=== PATIENT | female | born 2005 | race Caucasian/White ===

== ENCOUNTER 2023-08-27 00:11 | Emergency (ER) | payer BC ==
[2023-08-27 00:22] VITALS: RESP 20
--- NOTE | 2023-08-27 00:51 | ED ---
Eye Problem HPI - General Chief complaint: Eye Problems Stated complaint: Rt eye swelling and pain Time Seen by Provider: 08/27/23 00:24 Source: patient, RN notes reviewed Mode of arrival: ambulatory Limitations: no limitations - History of Present Illness Initial comments: 17-year-old female presented to the ED with a chief complaint of eye problem. Patient just recently found out she was . Has upcoming follow-up with [facility]. Denies vaginal bleeding, abdominal pain, vaginal discharge. Secondary to recent , notes that she has been having nausea and has problems with queasiness. States that she saw her boyfriend unwrapping a burger which made her nauseous. States that after she vomited she started to feel pain of her right and noticed that she popped a blood vessel which prompted presentation to the ED for further evaluation. Denies vision loss. No fever or chills. No other complaints at this time. - Related Data Allergies Allergy/AdvReac Type Severity Reaction Status Date / Time No Known Allergies Allergy Verified 08/27/23 00:22 Review of Systems ROS Statement: Those systems with pertinent positive or pertinent negative responses have been documented in the HPI. ROS Other: All systems not noted in ROS Statement are negative. Past Medical History Past Medical History: No Reported History History of Any Multi-Drug Resistant Organisms: None Reported Past Surgical History: No Surgical Hx Reported Past Psychological History: No Psychological Hx Reported Smoking Status: Vaper Past Alcohol Use History: None Reported Past Drug Use History: Marijuana General Exam Limitations: no limitations General appearance: alert, in no apparent distress Eye exam: Present: PERRL, EOMI, other (Small amount of conjunctival injection) Neck exam: Present: normal inspection Respiratory exam: Present: normal lung sounds bilaterally Cardiovascular Exam: Present: regular rate GI/Abdominal exam: Present: soft, normal bowel sounds. Absent: distended, tenderness, guarding, rebound, rigid Extremities exam: Present: normal inspection Back exam: Present: normal inspection Neurological exam: Present: alert, oriented X3 Skin exam: Present: warm, dry Course Vital Signs 08/27/23 00:19 Temperature 98.3 F Pulse Rate 102 H Respiratory 20 Rate Blood Pressure 137/90 O2 Sat by Pulse 99 Oximetry Medical Decision Making - Medical Decision Making Was pt. sent in by a medical professional or institution (, PA, PUBLICATION DISTRIBUTOR, urgent care, hospital, or retirement...) When possible be specific @ -No Did you speak to anyone other than the patient for history (EMS, parent, family, police, friend...)? What history was obtained from this source @ -No Did you review nursing and triage notes (agree or disagree)? Why? @ -I reviewed and agree with nursing and triage notes Were old charts reviewed (outside hosp., previous admission, EMS record, old EKG, old radiological studies, urgent care reports/EKG's, retirement records)? Report findings @ -No old charts were reviewed Differential Diagnosis (chest pain, altered mental status, abdominal pain women, abdominal pain men, vaginal bleeding, weakness, fever, dyspnea, syncope, headache, dizziness, GI bleed, back pain, seizure, CVA, palpatations, mental health, musculoskeletal)? @ -Retinal detachment, orbital cellulitis, periorbital cellulitis. This not meant to be an inclusive list. EKG interpreted by me (3pts min.). @ -None X-rays interpreted by me (1pt min.). @ -None done CT interpreted by me (1pt min.). @ -None done U/S interpreted by me (1pt. min.). @ -None done What testing was considered but not performed or refused? (CT, X-rays, U/S, labs)? Why? @ -None What meds were considered but not given or refused? Why? @ -None Did you discuss the management of the patient with other professionals (professionals i.e. , PA, PUBLICATION DISTRIBUTOR, lab, RT, psych nurse, mental health social worker, bowl attendant, teacher, licensed loan officer assistant, supportive employment case manager)? Give summary @ -No Was smoking cessation discussed for >3mins.? @ -No Was critical care preformed (if so, how long)? @ -No Were there social determinants of health that impacted care today? How? (Homelessness, low income, unemployed, alcoholism, drug addiction, transportation, low edu. Level, literacy, decrease access to med. care, halfway, rehab)? @ -No Was there de-escalation of care discussed even if they declined (Discuss DNR or withdrawal of care, Hospice)? DNR status @ -No What co-morbidities impacted this encounter? (DM, HTN, Smoking, COPD, CAD, Cancer, CVA, ARF, Chemo, Hep., AIDS, mental health diagnosis, sleep apnea, morbid obesity)? @ -None Was patient admitted / discharged? Hospital course, mention meds given and route, prescriptions, significant lab abnormalities, going to OR and other pertinent info. @ -Discharge 17-year-old female who is presenting to the ED with complaints of subconjunctival hemorrhage. Patient reports that she vomited earlier after seeing her boyfriend unwrapped a burger and states that she thinks she popped a blood vessel in her eye. On examination consistent with small subconjunctival hemorrhage. No vision losses. PERRLA EOMI. Exam findings consistent with subconjunctival hemorrhage. Patient reassured. Discharged home in stable condition with instructions to follow-up with her PCP. Discussed return precautions patient who verbalized agreement. Undiagnosed new problem with uncertain prognosis? @ -No Drug Therapy requiring intensive monitoring for toxicity (Heparin, Nitro, Insulin, Cardizem)? @ -No Were any procedures done? @ -No Diagnosis/symptom? @ -Subconjunctival hemorrhage Acute, or Chronic, or Acute on Chronic? @ -Acute Uncomplicated (without systemic symptoms) or Complicated (systemic symptoms)? @ -Uncomplicated Side effects of treatment? @ -No Exacerbation, Progression, or Severe Exacerbation? @ -No Poses a threat to life or bodily function? How? (Chest pain, USA, NV, pneumonia, PE, COPD, DKA, ARF, appy, cholecystitis, CVA, Diverticulitis, Homicidal, Suicidal, threat to staff... and all critical care pts) @ -No Disposition Clinical Impression: Subconjunctival bleed Disposition: HOME SELF-CARE Condition: Good Instructions (If sedation given, give patient instructions): Subconjunctival Hemorrhage (ED) Additional Instructions: Please return to the Emergency Department if symptoms worsen or any other concerns. Please follow-up with your primary care provider. Is patient prescribed a controlled substance at d/c from ED?: No Referrals: Italo Garcia MD [Primary Care Provider] - 1-2 days Time of Disposition: 00:55
[2023-08-27 01:45] VITALS: BP 133/87; PULSE 90; TEMP 98.2
== END 2023-08-27 01:05 | disposition home or self-care (01) ==
LOC: EC 00:11
DX: H11.30 Conjunctival hemorrhage, unspecified eye (principal); F17.290 Nicotine dependence, other tobacco product, uncomplicated
CPT/HCPCS: 99283

== ENCOUNTER 2023-09-10 12:44 | Emergency (ER) | payer BC ==
[2023-09-10 13:01] VITALS: RESP 16
--- NOTE | 2023-09-10 13:27 | ED ---
Female Urogenital HPI - General Chief complaint: Vaginal Bleeding Stated complaint: Vaginal bleeding-7 weeks preg Time Seen by Provider: 09/10/23 13:04 Source: patient, RN notes reviewed Mode of arrival: ambulatory Limitations: no limitations - History of Present Illness Initial comments: This is a 17-year-old female who presents to the emergency department for vaginal bleeding in . Patient is approximately 6 and half weeks and . States that she has had vaginal bleeding for the last 5 days that seems to be getting worse. The pain she states almost feels near where her cervix would be. She works at [employer] and had her hCG rechecked and was told that it had doubled. Most recent hCG on 09/04 was 12,000. Blood type is O- and she also received RhoGAM on 09/04. She had an ultrasound when she was about 5 weeks demonstrating a gestational sac, however it was too early to see a heartbeat. Currently follows with [facility] in [place], [place]. Complaint: vaginal bleeding Last Menstrual Period: 07/05/23 - Related Data Allergies Allergy/AdvReac Type Severity Reaction Status Date / Time No Known Allergies Allergy Verified 08/27/23 00:22 Review of Systems ROS Statement: Those systems with pertinent positive or pertinent negative responses have been documented in the HPI. ROS Other: All systems not noted in ROS Statement are negative. Past Medical History Past Medical History: GERD/Reflux Additional Past Medical History / Comment(s): ibs History of Any Multi-Drug Resistant Organisms: None Reported Past Surgical History: No Surgical Hx Reported Past Psychological History: No Psychological Hx Reported Smoking Status: Vaper Past Alcohol Use History: None Reported Past Drug Use History: Marijuana General Exam Limitations: no limitations General appearance: alert, in no apparent distress Head exam: Present: atraumatic, normocephalic, normal inspection Respiratory exam: Present: normal lung sounds bilaterally. Absent: respiratory distress, wheezes, rales, rhonchi, stridor Cardiovascular Exam: Present: regular rate, normal rhythm, normal heart sounds. Absent: systolic murmur, diastolic murmur, rubs, gallop, clicks Neurological exam: Present: alert, oriented X3, CN II-XII intact Psychiatric exam: Present: normal affect, normal mood Skin exam: Present: warm, dry, intact, normal color. Absent: rash Course Vital Signs 09/10/23 09/10/23 12:58 15:40 Temperature 98.2 F 97.9 F Pulse Rate 60 62 Respiratory 16 16 Rate Blood Pressure 117/62 119/78 O2 Sat by Pulse 98 100 Oximetry Medical Decision Making - Medical Decision Making This is a 17 year old female who presents to the emergency department for vaginal bleeding in . Was pt. sent in by a medical professional or institution? @ -No Did you speak to anyone other than the patient for history? @ -No Did you review nursing and triage notes? @ -Yes, and I agree, it is accurate with regards to the patient's symptoms. Were old charts reviewed? @ -No Differential Diagnosis? @ -Differential Vaginal Bleeding: Spontaneous , threatened , molar , ectopic , incompetent cervix, placenta previa, uterine rupture, dysfunctional uterine bleeding, hemorrhage, uterine fibroids, malignancy, coagulopathy, PID, cervicitis, adenomyosis, vaginal trauma, this is not meant to be an all- inclusive list. EKG interpreted by me (3pts min.)? @ -Not obtained X-rays interpreted by me (1pt min.)? @ -Not obtained CT interpreted by me (1pt min.)? @ -Not obtained U/S interpreted by me (1pt. min.)? @ -Obstetrics ultrasound obtained. My interpretation identifies an intrauterine gestational sac. What testing was considered but not performed? (CT, X-rays, U/S, labs)? Why? @ -None What meds were considered but not given? Why? @ -None Did you discuss the management of the patient with other professionals? @ -No Did you reconcile home meds? @ -No Was smoking cessation discussed for >3mins.? @ -No Was critical care preformed (if so, how long)? @ -No Were there social determinants of health that impacted care today? How? (Homelessness, low income, unemployed, alcoholism, drug addiction, transportation, low edu. Level, literacy, decrease access to med. care, half-way, rehab)? @ -No Was there de-escalation of care discussed even if they declined? (Discuss DNR or withdrawal of care, Hospice)? @ -No What co-morbidities impacted this encounter? (DM, HTN, Smoking, COPD, CAD, Cancer, CVA, Hep., AIDS, mental health diagnosis, sleep apnea, morbid obesity)? @ - Was patient admitted / discharged? @ -Discharged. Lab work demonstrates a beta-hCG of 48,999, this is about what would be expected given that her hCG was around 12,000 on 09/04. Urinalysis negative for signs of infection. Patient is Rh-, but received RhoGAM 5 days ago and a repeat dose is not indicated at this time. Obstetrics ultrasound demonstrates an intrauterine gestational sac with yolk sac. No pole or heart tones identified at this time likely due to early gestational paged. Findings reviewed with the patient. She was given a lab order to have beta-hCG repeated in 48 hours. Otherwise advised follow-up with her [facility]. Undiagnosed new problem with uncertain prognosis? @ -None Drug Therapy requiring intensive monitoring for toxicity (Heparin, Nitro, Insulin, Cardizem)? @ -None Were any procedures done? @ -None Diagnosis/symptom? @ -Vaginal bleeding in Acute, or Chronic, or Acute on Chronic? @ -Acute Uncomplicated (without systemic symptoms) or Complicated (systemic symptoms)? @ -Uncomplicated Side effects of treatment? @ -None Exacerbation, Progression, or Severe Exacerbation] @ -Not applicable Poses a threat to life or bodily function? @ -Unlikely Return precautions reviewed in depth, the patient is instructed to return to the emergency department with any new, worsening, or concerning symptoms. Patient verbalized understanding. This case was discussed in detail with the attending ED physician, Dr. Marte. Presentation, findings, and treatment plan discussed in detail as well. - Lab Data Result diagrams: 09/10/23 13:30 09/10/23 13:30 Lab Results 09/10/23 09/10/23 09/10/23 Range/Units 13:30 13:30 13:30 WBC 6.9 (4.0-11.0) k/uL RBC 4.38 (3.80-5.40) m/uL Hgb 13.0 (11.4-16.0) gm/dL Hct 40.4 (34.0-46.0) % MCV 92.2 (80.0-100.0) fL MCH 29.6 (25.0-35.0) pg MCHC 32.1 (31.0-37.0) g/dL RDW 12.6 (11.5-15.5) % Plt Count 250 (150-450) k/uL MPV 8.6 Neutrophils % 61 % Lymphocytes % 27 % Monocytes % 7 % Eosinophils % 1 % Basophils % 0 % Neutrophils # 4.2 (1.3-7.7) k/uL Lymphocytes # 1.9 (1.0-4.8) k/uL Monocytes # 0.5 (0-1.0) k/uL Eosinophils # 0.1 (0-0.7) k/uL Basophils # 0.0 (0-0.2) k/uL Sodium 138 (137-145) mmol/L Potassium 3.8 (3.5-5.1) mmol/L Chloride 106 (98-107) mmol/L Carbon Dioxide 22 (22-30) mmol/L Anion Gap 10 mmol/L BUN 9 (7-17) mg/dL Creatinine 0.46 L (0.52-1.04) mg/dL Est GFR (CKD-EPI)AfAm >90 (>60 ml/min/1.73 sqM) Est GFR (CKD-EPI)NonAf >90 (>60 ml/min/1.73 sqM) Glucose 84 (74-99) mg/dL Calcium 9.6 (8.4-10.2) mg/dL Total Bilirubin 0.8 (0.2-1.3) mg/dL AST 22 (14-36) U/L ALT 14 (4-34) U/L Alkaline Phosphatase 40 (38-126) U/L Total Protein 6.8 (6.3-8.2) g/dL Albumin 4.2 (3.5-5.0) g/dL HCG, Quant 18772.4 mIU/mL Urine Color Urine Appearance (Clear) Urine pH (5.0-8.0) Ur Specific Thornton (1.001-1.035) Urine Protein (Negative) Urine Glucose (UA) (Negative) Urine Ketones (Negative) Urine Blood (Negative) Urine Nitrite (Negative) Urine Bilirubin (Negative) Urine Urobilinogen (<2.0) mg/dL Ur Leukocyte Esterase (Negative) Blood Type O Negative Blood Type Recheck No Previous Record Bld Type Recheck Status [facility] 09/10/23 Range/Units 14:40 WBC (4.0-11.0) k/uL RBC (3.80-5.40) m/uL Hgb (11.4-16.0) gm/dL Hct (34.0-46.0) % MCV (80.0-100.0) fL MCH (25.0-35.0) pg MCHC (31.0-37.0) g/dL RDW (11.5-15.5) % Plt Count (150-450) k/uL MPV Neutrophils % % Lymphocytes % % Monocytes % % Eosinophils % % Basophils % % Neutrophils # (1.3-7.7) k/uL Lymphocytes # (1.0-4.8) k/uL Monocytes # (0-1.0) k/uL Eosinophils # (0-0.7) k/uL Basophils # (0-0.2) k/uL Sodium (137-145) mmol/L Potassium (3.5-5.1) mmol/L Chloride (98-107) mmol/L Carbon Dioxide (22-30) mmol/L Anion Gap mmol/L BUN (7-17) mg/dL Creatinine (0.52-1.04) mg/dL Est GFR (CKD-EPI)AfAm (>60 ml/min/1.73 sqM) Est GFR (CKD-EPI)NonAf (>60 ml/min/1.73 sqM) Glucose (74-99) mg/dL Calcium (8.4-10.2) mg/dL Total Bilirubin (0.2-1.3) mg/dL AST (14-36) U/L ALT (4-34) U/L Alkaline Phosphatase (38-126) U/L Total Protein (6.3-8.2) g/dL Albumin (3.5-5.0) g/dL HCG, Quant mIU/mL Urine Color Light Yellow Urine Appearance Clear (Clear) Urine pH 7.5 (5.0-8.0) Ur Specific Thornton 1.018 (1.001-1.035) Urine Protein Negative (Negative) Urine Glucose (UA) Negative (Negative) Urine Ketones Negative (Negative) Urine Blood Negative (Negative) Urine Nitrite Negative (Negative) Urine Bilirubin Negative (Negative) Urine Urobilinogen <2.0 (<2.0) mg/dL Ur Leukocyte Esterase Negative (Negative) Blood Type Blood Type Recheck Bld Type Recheck Status - Radiology Data Radiology results: report reviewed, image reviewed Disposition Clinical Impression: Vaginal bleeding during Disposition: HOME SELF-CARE Additional Instructions: Return to the emergency department with any new, worsening, or concerning symptoms. Take the lab slip to have your hCG count repeated in 48 hours. Follow-up with your [facility]. Is patient prescribed a controlled substance at d/c from ED?: No Referrals: Italo Garcia MD [Primary Care Provider] - 1-2 days Time of Disposition: 15:20
[2023-09-10 14:00] LABS: Basophils % (A) 0 %; Eosinophils # (A) 0.1 k/uL (0-0.7); Eosinophils % (A) 1 %; HCT 40.4 % (34.0-46.0); Lymphocytes # (A) 1.9 k/uL (1.0-4.8); Lymphocytes % (A) 27 %; MCH 29.6 pg (25.0-35.0); MCHC 32.1 g/dL (31.0-37.0); MCV 92.2 fL (80.0-100.0); Mean Platelet Volume 8.6; Monocytes # (A) 0.5 k/uL (0-1.0); Monocytes % (A) 7 %; Neutrophils # (A) 4.2 k/uL (1.3-7.7); Neutrophils % (A) 61 %; Platelet Count 250 k/uL (150-450); RBC 4.38 m/uL (3.80-5.40); RDW 12.6 % (11.5-15.5); WBC 6.9 k/uL (4.0-11.0)
[2023-09-10 14:04] LABS: ALT 14 U/L (4-34); AST 22 U/L (14-36); African American GFR (CKD) >90 (>60 ml/min/1.73 sqM); Albumin 4.2 g/dL (3.5-5.0); Alkaline Phosphatase 40 U/L (38-126); Anion Gap 10 mmol/L; Blood Urea Nitrogen 9 mg/dL (7-17); Calcium 9.6 mg/dL (8.4-10.2); Carbon Dioxide 22 mmol/L (22-30); Chloride 106 mmol/L (98-107); Glucose 84 mg/dL (74-99); Non-African American GFR(CKD) >90 (>60 ml/min/1.73 sqM); Potassium 3.8 mmol/L (3.5-5.1); Sodium 138 mmol/L (137-145); Total Bilirubin 0.8 mg/dL (0.2-1.3); Total Protein 6.8 g/dL (6.3-8.2)
[2023-09-10 14:48] LABS: HCG,Quantitative Serum 48999.4 mIU/mL
[2023-09-10 14:56] LABS: Appearance,Urine Clear (Clear); Bilirubin,Urine Negative (Negative); Blood,Urine Negative (Negative); Color,Urine Light Yellow; Glucose,Urine (UA) Negative (Negative); Ketones,Urine Negative (Negative); Leukocyte Esterase,Urine Negative (Negative); Nitrite,Urine Negative (Negative); PH, Urine 7.5 (5.0-8.0); Protein,Urine Negative (Negative); Specific Gravity,Urine 1.018 (1.001-1.035); Urobilinogen,Urine <2.0 mg/dL (<2.0)
--- NOTE | 2023-09-10 15:06 | US ---
EXAMINATION TYPE: Transabdominal DATE OF EXAM: 09/10/2023 2:39 PM COMPARISON: NONE CLINICAL INDICATION: Female, 17 years old with history of Vaginal bleeding in ; vaginal blee ding for 1 week. Patient states 5-7 weeks gestation EXAM PERFORMED: Transvaginal (TV) and Transabdominal (TA) EXAM MEASUREMENTS: GESTATIONAL AGE / DATING Physician Established: Not yet established Dates by LMP: (9 weeks/4 days) EDC: 04/10/24 Dates by First Scan: No previous this is first scan Dates by Current Scan for: (6 weeks/5 days) - MSD MATERNAL ANATOMY Uterus: 8.3 x 5.6 x 6.2cm Right Ovary: 2.9 x 1.7 x 1.5cm Left Ovary: 4.2 x 2.8 x 1.9cm Post CDS / Adnexa: wnl Presence of free fluid: no Presence of corpus luteal cyst: yes, complex area left ovary = 2.6 x 1.8 x 2.2cm GESTATION / SURVEY MSD: 1.8cm (6 weeks/5 days) Yolk Sac (normal less than 6mm): 0.3cm IUP: no evidence of pole at this time ?? too early Date of LMP: 07/05/23 Beta HcG (if available): Not available at this time IMPRESSION: Intrauterine gestational sac with yolk sac identified corresponding to ultrasound age of 6 weeks 5 da ys. No pole or heart tones are identified at this time likely due to early gestational ag e. Recommend follow-up with pelvic ultrasound and serial beta hCG to ensure further development of th e fetus.
[2023-09-10 15:42] VITALS: BP 119/78; PULSE 62; TEMP 97.9
== END 2023-09-10 15:42 | disposition home or self-care (01) ==
LOC: EC 12:44
DX: O20.9 Hemorrhage in early pregnancy, unspecified (principal); N93.9 Abnormal uterine and vaginal bleeding, unspecified; O99.321 Drug use complicating pregnancy, first trimester; F17.290 Nicotine dependence, other tobacco product, uncomplicated; Z3A.01 Less than 8 weeks gestation of pregnancy
CPT/HCPCS: 36415; 76801; 76817; 80053; 81003; 84702; 85025; 86900; 86901; 99284

== ENCOUNTER 2024-05-06 13:15 | Inpatient (IN) | payer OTHER ==
[2024-05-15] MEDS ORDERED: CARBOPROST TROMETHAMINE 250 MCG/ML 1 ML AMP IM PRN (06:20)
[2024-05-15] MEDS ORDERED: LIDOCAINE 0.5% (PF) 5 MG/ML (50 ML SDV) SQ PRN (06:20)
[2024-05-15] MEDS ORDERED: miSOPROStoL 200 MCG TAB PO PRN (06:20)
[2024-05-15] MEDS ORDERED: METHYLERGONOVINE 0.2 MG/ML 1 ML AMP IM PRN (06:20)
[2024-05-15] MEDS ORDERED: TERBUTALINE 1 MG/ML VIAL SQ PRN (06:20)
[2024-05-15] MEDS ORDERED: TRANEXAMIC 1,000 MG/100ML-NACL 1,000 MG in EMPTY BAG 1 BAG IV PRN (06:20)
[2024-05-15] MEDS ORDERED: miSOPROStoL 200 MCG TAB RECTAL PRN (06:20)
[2024-05-15] MEDS ORDERED: OXYTOCIN 10 UNIT/ML 1 ML VIAL IM PRN (06:20)
[2024-05-15] MEDS: PENICILLIN G POTASSIUM 5,000,000 UNIT in SODIUM CHLORIDE 0.9% 100 ML IVPB ONE (07:22)
[2024-05-15] MEDS: LACTATED RINGERS 1,000 ML IV SCH (07:22)
[2024-05-15] MEDS: OXYTOCIN 30 UNITS/500 ML NS 30 UNIT in SALINE 1 500ML.BAG IV SCH (07:23)
[2024-05-15 07:32] LABS: Basophils % (A) 0 %; Eosinophils # (A) 0.1 k/uL (0-0.7); Eosinophils % (A) 1 %; HCT 40.7 % (34.0-46.0); HGB 13.2 gm/dL (11.4-16.0); Lymphocytes # (A) 2.7 k/uL (1.0-4.8); Lymphocytes % (A) 24 %; MCH 29.8 pg (25.0-35.0); MCHC 32.4 g/dL (31.0-37.0); MCV 91.9 fL (80.0-100.0); Mean Platelet Volume 10.1; Monocytes # (A) 0.5 k/uL (0-1.0); Monocytes % (A) 5 %; Neutrophils # (A) 7.8 k/uL (1.3-7.7); Neutrophils % (A) 68 %; Platelet Count 180 k/uL (150-450); RBC 4.44 m/uL (3.80-5.40); RDW 13.7 % (11.5-15.5); WBC 11.6 k/uL (4.0-11.0)
[2024-05-15 07:33] LABS: Amphetamine Screen,Urine Not Detected (NotDetected); Barbiturate Screen,Urine Not Detected (NotDetected); Benzodiazepines Screen,Urine Not Detected (NotDetected); Cocaine Screen,Urine Not Detected (NotDetected); Methadone Screen, Urine Not Detected (NotDetected); Opiate Screen,Urine Not Detected (NotDetected); Oxycodone Screen, Urine Not Detected (NotDetected); Phencyclidine Screen,Urine Not Detected (NotDetected); Tricyclic Antidepressant,Urine Not Detected (NotDetected); Urn Cannabinoid Scrn Not Detected (NotDetected)
--- NOTE | 2024-05-15 08:41 | P.HPOB ---
History of Present Illness H&P Date: 05/15/24 Chief Complaint: induction of labor Ms. Crowley is a 18 year old at 41 weeks and 3 days gestation with EDC of 05/05/2024 by early 2nd trimester US who presents for induction of labor. The fetus is estimated to weigh in the 53%ile for weight based on a 36 week growth US (at that time fetus was 5#5oz) so approximately 8# now. Labs: bloody type O negative (s/p rhogam at 28 weeks), antibody screen negative, rubella non-immune, VDRL non-reactive, HBsAg negative, HIV negative, HCV non-reactive, gonorrhea negative, chlamydia negative, 1 hour GTT wnl, GBS positive Past Medical History Past Medical History: GERD/Reflux Additional Past Medical History / Comment(s): ibs History of Any Multi-Drug Resistant Organisms: None Reported Past Surgical History: No Surgical Hx Reported Additional Past Surgical History / Comment(s): colonoscopy. Past Anesthesia/Blood Transfusion Reactions: No Reported Reaction Past Psychological History: No Psychological Hx Reported Smoking Status: Vaper Past Alcohol Use History: None Reported Past Drug Use History: Marijuana - Past Family History Father Family Medical History: Coronary Artery Disease (CAD), Diabetes Mellitus Medications and Allergies Home Medications Medication Instructions Recorded Confirmed Type Aspirin 81 mg PO DAILY 04/13/24 05/15/24 History Vit No.179/Iron/Folic 1 oz PO DAILY 04/13/24 05/15/24 History [ Tablet] Allergies Allergy/AdvReac Type Severity Reaction Status Date / Time No Known Allergies Allergy Verified 04/13/24 11:55 Exam Vital Signs Temp Pulse Resp BP Pulse Ox 05/15/24 07:00 97.2 F L 112 H 18 142/76 98 Intake and Output 05/14/24 05/15/24 05/15/24 22:59 06:59 14:59 Other: Weight 91.172 kg 91.172 kg Focused physical exam is performed. This is a healthy-appearing in no apparent distress. Breathing is non-labored. Abdomen is gravid and non-tender. Cervical exam is 1.570/-3. AROM is undertaken with clear fluid noted. Extremities non-tender and non-edematous. heart tones are Category I and tocometer is graphing contractions are irregular. Results Result Diagrams: 05/15/24 07:19 Abnormal Lab Results - Last 24 Hours (Table) 05/15/24 Range/Units 07:19 WBC 11.6 H (4.0-11.0) k/uL Neutrophils # 7.8 H (1.3-7.7) k/uL Assessment and Plan Assessment: 18 year old at 41 weeks and 3 days presenting for induction of labor Plan: Admit, clear liquid diet, pitocin per protocol, epidural prn, continuous EFM and tocometer, Pen G for GBS ppx
[2024-05-15] MEDS: PENICILLIN G POTASSIUM 2,500,000 UNIT in SODIUM CHLORIDE 0.9% 100 ML IVPB SCH (11:38)
[2024-05-15] MEDS: BUTORPHANOL 1 MG/ML 1 ML VIAL IV PRN (18:06)
[2024-05-15] MEDS ORDERED: LIDOCAINE HCL/PF 20 MG/ML 10 ML AMP ONE (20:10)
[2024-05-15] MEDS ORDERED: ROPIVACAINE 5 MG/ML 30 ML VIAL ONE (20:10)
[2024-05-15] MEDS ORDERED: fentaNYL (PF) 50 MCG/ML 5 ML AMP ONE (20:10)
[2024-05-15] MEDS ORDERED: SODIUM CHLORIDE 0.9% 250 ML BAG ONE (20:10)
[2024-05-16] MEDS: CITRIC ACID-SODIUM CITRATE 15 ML CUP PO ONE (08:10)
[2024-05-16] MEDS ORDERED: CARBOPROST TROMETHAMINE 250 MCG/ML 1 ML AMP IM PRN (08:11)
[2024-05-16] MEDS ORDERED: TRANEXAMIC 1,000 MG/100ML-NACL 1,000 MG in EMPTY BAG 1 BAG IV PRN (08:11)
[2024-05-16] MEDS ORDERED: miSOPROStoL 200 MCG TAB PO PRN (08:11)
[2024-05-16] MEDS ORDERED: OXYTOCIN 10 UNIT/ML 1 ML VIAL IM PRN (08:11)
[2024-05-16] MEDS ORDERED: METHYLERGONOVINE 0.2 MG/ML 1 ML AMP IM PRN (08:11)
[2024-05-16] MEDS ORDERED: ONDANSETRON 4 MG/2 ML VIAL ONE (08:20)
[2024-05-16] MEDS ORDERED: NALBUPHINE (ANES) 10 MG/ML - 1 ML AMP ONE (08:20)
[2024-05-16] MEDS ORDERED: MORPHINE SULFATE (PF) 0.3 MG/0.3 ML SYR ONE (08:20)
[2024-05-16] MEDS ORDERED: PHENYLEPHRINE-0.9% NACL SYG 1,000 MCG/10 ML SYRINGE ONE (08:20)
[2024-05-16] MEDS ORDERED: OXYTOCIN 10 UNIT/ML 1 ML VIAL ONE (08:20)
[2024-05-16] MEDS ORDERED: KETOROLAC 30 MG/ML 1 ML VIAL ONE (08:20)
[2024-05-16] MEDS ORDERED: NALOXONE 0.4 MG/ML 1 ML VIAL IV PRN (09:13)
[2024-05-16] MEDS ORDERED: ONDANSETRON 4 MG/2 ML VIAL IVP PRN (09:13)
[2024-05-16] MEDS ORDERED: diphenhydrAMINE 50 MG/ML 1 ML VIAL IVP PRN ×2 (09:13)
[2024-05-16] MEDS ORDERED: diphenhydrAMINE 50 MG CAP PO PRN (09:13)
[2024-05-16] MEDS ORDERED: SIMETHICONE 80 MG CHEWABLE PO PRN (09:13)
[2024-05-16] MEDS ORDERED: METOCLOPRAMIDE 5 MG/ML 2 ML VIAL IVP PRN (09:13)
[2024-05-16] MEDS ORDERED: ZOLPIDEM 5 MG TAB PO PRN (09:13)
--- NOTE | 2024-05-16 09:13 | P.OP ---
Date of Procedure: 05/16/24 Preoperative Diagnosis: 1. Post-dates IUP at 41 weeks and 4 days 2. Arrest of dilation 3. Prolonged rupture of membranes 4. Thin meconium stained amniotic fluid Postoperative Diagnosis: 1. Post-dates IUP at 41 weeks and 4 days 2. Arrest of dilation 3. Prolonged rupture of membranes 4. Thin meconium stained amniotic fluid 5. Occiput transverse presentation Procedure(s) Performed: Primary Lower Transverse Section Implants: None Anesthesia: spinal Surgeon: Herlinda Polo Train Operations Supervisor #1: Melissa Mishra Estimated Blood Loss (ml): 660 IV fluids (ml): 600 Urine output (ml): 400 (clear yellow) Pathology: none sent Condition: stable Disposition: floor Indications for Procedure: Ms. Crowley is a 18 year old at 41 weeks and 4 days being induced for post-dates gestation. She had failure to progress over a 4+ hour period despite adequate uterine contractions. section was recommended for maternal and well-being. The risks, benefits, and alternatives to section were discussed with the patient including risk of bleeding, infection, damage to surrounding structures including bladder/bowels/ureters, and post-operative VTE. The patient understands these risks and desires to proceed with section. Operative Findings: Viable male infant in occiput transverse position. Apgars 9/9. Weight 8 pounds and 13 ounces (4000 grams). Normal uterus, bilateral fallopian tubes, and ovaries. Description of Procedure: The patient was taken back to the operating room where spinal anesthesia was found to be adequate. Two grams of Ancef were given for infection prophylaxis. She was prepared and draped in the dorsal supine position with a leftward tilt. A Pfannenstiel skin incision was made with the scalpel. The incision was carried down to the fascia with a bovie. The fascia was incised and extended laterally with Booth scissors. The superior aspect of the fascia was grasped with the Joey clamps. The underlying rectus muscle was dissected off sharply with Booth scissors. In a similar fashion, the inferior aspect of the fascia was elevated with Joey clamps and the rectus muscle and pyramidalis were dissected off. Excellent hemostasis was achieved with the bovie. The rectus muscle was in the midline down to the level of the pubic symphysis. Pre- peritoneal fatty tissue was bluntly dissected to expose the peritoneum. The peritoneum was found to be free of adherent bowel and entered sharply with Booth scissors. The peritoneal incision was extended superiorly and inferiorly to the bladder reflection with good visualization of the bladder. The bladder blade was inserted and vesicouterine peritoneum was identified. Intraabdominal survey revealed scant, clear peritoneal fluid and the thinned-out lower uterine segment. The bladder blade was repositioned to keep the bladder out of the operative field. The lower uterine segment was incised with a scalpel. Thin meconium was noted in the amniotic fluid. The uterine incision was extended bluntly with lateral and upward traction. The fetus was in cephalic presentation. The head was elevated out of the pelvis with special attention paid to avoid using the uterine incision as a fulcrum. Gentle fundal pressure was applied once the head was brought into the incision. The was delivered with no difficulty and was noted to be crying spontaneously. The mouth and nose were suctioned with a bulb. The cord was clamped and cut. The infant was handed off to the traction power engineer. IV oxytocin was initiated to facilitate uterine contractions. The placenta was delivered intact with manual massage of uterine fundus. The uterus was then exteriorized and the inside of the uterus was gently wiped with a lap sponge to assure complete removal of placental membranes. The uterine incision was closed with 0-Vicryl suture in a running locked fashion. A second imbricating layer was placed with 0-Vicryl. The ovaries and tubes were found to be normal. The uterus, tubes, and ovaries were then gently returned to the abdominal cavity. The abdomen was copiously suction irrigated. The uterine incision was reinspected and excellent hemostasis was noted. The fascial layer was closed with a 0-Vicryl suture. The subcutaneous tissue was reapproximated with 2-0 Plain Gut. The skin was closed with 4-0 Monocryl in a subcuticular fashion.The patient tolerated the procedure well. All the counts were correct times two. The patient was taken to the recovery room in a stable condition. A physician surgical device sales representative was utilized for the entire procedure due to the need for tissue retraction, dissection of vital structures, prevention and management of blood loss, and reduction in overall operative and anesthesia time as is the standard of care.
[2024-05-16] MEDS: ACETAMINOPHEN TAB 500 MG TAB PO SCH (13:50)
[2024-05-16] MEDS: LACTATED RINGERS 1,000 ML IV SCH (16:32)
[2024-05-16] MEDS: Rhogam IMMUNE GLOBULIN 1,500 UNIT/1 ML IM ONE (16:34)
[2024-05-16] MEDS: KETOROLAC 15 MG/ML 1 ML VIAL IVP SCH (18:09)
[2024-05-16] MEDS: SENNOSIDES-DOCUSATE SODIUM 1 EACH TAB PO SCH (20:22)
[2024-05-17] MEDS: diphenhydrAMINE 25 MG CAP PO PRN (00:39)
[2024-05-17] MEDS: IBUPROFEN 800 MG TAB PO SCH (04:51)
[2024-05-17 05:02] LABS: Basophils % (A) 0 %; Eosinophils # (A) 0.1 k/uL (0-0.7); Eosinophils % (A) 1 %; HCT 34.3 % (34.0-46.0); Lymphocytes # (A) 2.6 k/uL (1.0-4.8); Lymphocytes % (A) 17 %; MCH 29.8 pg (25.0-35.0); MCHC 31.9 g/dL (31.0-37.0); MCV 93.2 fL (80.0-100.0); Mean Platelet Volume 9.9; Monocytes # (A) 0.7 k/uL (0-1.0); Monocytes % (A) 5 %; Neutrophils # (A) 10.9 k/uL (1.3-7.7); Neutrophils % (A) 74 %; Platelet Count 177 k/uL (150-450); RBC 3.68 m/uL (3.80-5.40); RDW 13.4 % (11.5-15.5); WBC 14.9 k/uL (4.0-11.0)
--- NOTE | 2024-05-17 08:54 | P.PN ---
Progress Note - Text 05/17/24 643am 18-year-old female status post with Duramorph. Patient seen and evaluated for postop pain control she has a VAS of 2 with no complaints of nausea vomiting she does have pruritus which should subside
--- NOTE | 2024-05-17 09:41 | P.PNOBGPC ---
Subjective - Subjective Principal diagnosis: s/p primary section Interval history: The patient is doing well this morning and had no acute events overnight. She has no complaints this morning. She reports minimal lochia, passing flatus, voiding without difficulty, ambulating, and eating/drinking without nausea or vomiting. She is her without difficulty. She denies chest pain, shortness of breathing, fevers, or chills overnight. She denies pain or swelling in the legs. Patient reports: Reports appetite normal, Reports voiding normally, Reports pain well controlled, Reports ambulating normally [place]: doing well, nursing well Objective - Vital Signs Latest vital signs: Vital Signs Temp Pulse Resp BP Pulse Ox 05/17/24 00:00 97.9 F 95 18 115/72 99 05/16/24 20:30 95 16 134/77 96 05/16/24 13:12 98 F 79 16 128/71 97 05/16/24 11:12 73 16 119/60 05/16/24 10:27 92 16 126/73 96 05/16/24 10:12 82 16 120/58 100 05/16/24 09:57 79 16 122/59 97 05/16/24 09:42 86 16 119/54 96 Intake and Output 05/16/24 05/17/24 05/17/24 22:59 06:59 14:59 Intake Total 200 Output Total 300 550 Balance -100 -550 Intake: Oral 200 Output: Urine 300 550 - Exam Extremities: Present: normal Abdomen: Present: normal appearance, soft Incision: Present: normal, dry, dressed Uterus: Present: normal, firm - Labs Labs: Abnormal Lab Results - Last 24 Hours (Table) 05/17/24 Range/Units 04:47 WBC 14.9 H (4.0-11.0) k/uL RBC 3.68 L (3.80-5.40) m/uL Hgb 11.0 L (11.4-16.0) gm/dL Neutrophils # 10.9 H (1.3-7.7) k/uL Assessment and Plan Assessment: 18 year old now POD#1 s/p primary section for failure to progress Plan: 1. Postoperative. Patient meeting postoperative milestones appropriately. 2. Viable male infant. Doing well at bedside, s/p circumcision. dispo: anticipate discharge home tomorrow.
[2024-05-17] MEDS ORDERED: IBUPROFEN 800 MG TAB PO SCH (16:00)
[2024-05-18 00:28] VITALS: RESP 16
[2024-05-18] MEDS: MEASLES-MUMPS-RUBELLA VACC/PF 12,500 UNIT/0.5 ML VIAL SQ ONE (03:31)
[2024-05-18 08:17] VITALS: BP 126/76; PULSE 98; TEMP 97.8
--- NOTE | 2024-05-18 10:13 | P.DS ---
Providers Date of admission: 05/15/24 06:10 Expected date of discharge: 05/18/24 Attending physician: Herlinda Polo MD Primary care physician: Stated None - Discharge Diagnosis(es) (1) Post-dates Current Visit: Yes Status: Acute (2) Thin meconium stained amniotic fluid Current Visit: Yes Status: Acute (3) Arrest of dilation, delivered, current hospitalization Current Visit: Yes Status: Acute (4) Status post section Current Visit: Yes Status: Acute (5) Rh negative status during Current Visit: Yes Status: Acute Hospital Course: This is a 19-year-old 1 mateus para 1 that presented to labor and delivery at 41-3/7 weeks for induction of labor secondary to postdates. Patient had been receiving routine care which had been essentially uncomplicated. Patient was admitted to labor and delivery where Pitocin induction of labor was begun. Patient progressed through labor eventually becoming uncomfortable and using nitrous and Stadol for pain control during labor. Patient was known GBS positive and was treated with penicillin G. Patient made minimal progress through labor and by the next morning section was called secondary to arrest of dilation. For full details on this patient please see the dictated history and physical. Patient was taken back for primary where she delivered a viable male infant at 842, weight of 8 pounds 13 ounces, Apgars of 9 and 9 at 1 and 5 minutes respectively. For full details of the please see the dictated operative report. Patient's postoperative course has been essentially uncomplicated. In this postoperative day #2 she is ambulating and voiding witho ut difficulty. She is tolerating a regular diet without nausea or vomiting. States her pain is well-controlled. She would like discharge home later today. Patient Condition at Discharge: Good Plan - Discharge Summary New Discharge Prescriptions: No Action Vit No.179/Iron/Folic [ Tablet] 1 oz PO DAILY Aspirin 81 mg PO DAILY Discharge Medication List Aspirin 81 mg PO DAILY 04/13/24 [History] Vit No.179/Iron/Folic [ Tablet] 1 oz PO DAILY 04/13/24 [History] Follow up Appointment(s)/Referral(s): Herlinda Polo MD [STAFF PHYSICIAN] - 06/26/24 10:15 am (C/S Appointment 05-29-2024 at 1:45pm) Patient Instructions/Handouts: (DC), (GEN) Activity/Diet/Wound Care/Special Instructions: [id number] ibuprofen 600 mg every 6 hours as needed for pain. No tub bat hs or intercourse until 6 weeks . Routine postoperative check in 2 weeks. Should she have any concerns prior to this visit she is urged to call the office. Discharge Disposition: HOME SELF-CARE
== END 2024-05-18 13:21 | disposition home or self-care (01) | DRG 540 ==
LOC: 4FBP 05-15 06:10
PROVIDERS: ADMIT Obstetrics & Gynecology; ATTEND Obstetrics & Gynecology
PROC: 3E033VJ Introduction of Other Hormone into Peripheral Vein, Percutaneous Approach (ICD-10-PCS; principal; 2024-05-15)
PROC: 10907ZC Drainage of Amniotic Fluid, Therapeutic from Products of Conception, Via Natural or Artificial Opening (ICD-10-PCS; principal; 2024-05-15)
PROC: 10D00Z1 Extraction of Products of Conception, Low, Open Approach (ICD-10-PCS; 2024-05-16)
PROC: 3E0134Z Introduction of Serum, Toxoid and Vaccine into Subcutaneous Tissue, Percutaneous Approach (ICD-10-PCS; 2024-05-18)
DX: O48.0 Post-term pregnancy (principal); O26.893 Other specified pregnancy related conditions, third trimester; Z67.41 Type O blood, Rh negative; O99.824 Streptococcus B carrier state complicating childbirth; O99.62 Diseases of the digestive system complicating childbirth; K21.9 Gastro-esophageal reflux disease without esophagitis; K58.9 Irritable bowel syndrome, unspecified; O99.334 Smoking (tobacco) complicating childbirth; F17.290 Nicotine dependence, other tobacco product, uncomplicated; O75.5 Delayed delivery after artificial rupture of membranes; O77.0 Labor and delivery complicated by meconium in amniotic fluid; O99.73 Diseases of the skin and subcutaneous tissue complicating the puerperium; L29.9 Pruritus, unspecified; O32.2XX0 Maternal care for transverse and oblique lie, not applicable or unspecified; O62.0 Primary inadequate contractions; Z79.82 Long term (current) use of aspirin; Z23 Encounter for immunization; Z3A.41 41 weeks gestation of pregnancy; Z37.0 Single live birth
CPT/HCPCS: 80306; 85025; 86850; 86900; 86901; 90471; 90707